=== PATIENT | male | born 1945 | race African-American/Black ===

== ENCOUNTER 2023-12-14 11:34 | Inpatient (IN) | payer MEDICARE ==
[~2023-12-14] VITALS: Ht 170.2 cm; Wt 58.1 kg
[2023-12-14 12:46] LABS: BASOPHILS % (AUTO) 0.5 % (0.0-2.0); EOSINOPHILS % (AUTO) 0.1 % (0.0-6.0); HEMATOCRIT 34 % (39-51); HEMOGLOBIN 11.7 g/dL (13.5-17.5); LYMPHOCYTES # (AUTO) 0.8 K/uL (0.8-4.8); LYMPHOCYTES % (AUTO) 8.5 % (20.0-44.0); MEAN CORPUSCULAR HEMOGLOBIN 31 PG (26.0-33.0); MEAN CORPUSCULAR HGB CONC 35 g/dl (31.0-36.0); MEAN CORPUSCULAR VOLUME 90 fL (80-96); MONOCYTES # (AUTO) 0.5 K/uL (0.1-1.30); MONOCYTES % (AUTO) 5.1 % (2.0-12.0); NEUTROPHILS # (AUTO) 8.4 K/uL (1.8-8.9); NEUTROPHILS % (AUTO) 85.8 % (43.0-81.0); PLATELET COUNT (AUTO) 245 K/uL (150-450); RED BLOOD CELL COUNT(AUTO) 3.72 MIL/uL (4.5-6.0); RED CELL DISTRIBUTION WIDTH 13.6 % (11.5-15.0); WHITE BLOOD COUNT (AUTO) 9.8 K/uL (4.3-11.0)
[2023-12-14 12:56] LABS: CALCIUM, SERUM 9.6 mg/dL (8.5-10.1); CARBON DIOXIDE 25 mmol/L (21-32); CHLORIDE 98 mmol/L (98-107); CREATININE 1.4 mg/dL (0.6-1.3); GLUCOSE 117 mg/dL (74-106); POTASSIUM 2.9 mmol/L (3.5-5.1); SODIUM SERUM 139 mmol/L (136-145); UREA NITROGEN, BLOOD 27 mg/dL (7-18)
[2023-12-14 13:08] LABS: NT-PRO BNP 670 pg/mL (0-125)
[2023-12-14] MEDS ORDERED: IOHEXOL-350 100 ML VIAL IV ONE (14:14)
[2023-12-14] MEDS ORDERED: ACETAMINOP PO (14:59)
[2023-12-14] MEDS ORDERED: ADVIL PO (14:59)
[2023-12-14] MEDS ORDERED: ENOXAPARIN SODIUM 60 MG/0.6 ML DISP.SYRIN SQ ONE (15:43)
[2023-12-14] MEDS: ENOXAPARIN SODIUM 60 MG/0.6 ML DISP.SYRIN SQ ONE (15:45)
[2023-12-14] MEDS ORDERED: MAGNESIUM HYDROXIDE 30 ML UDC PO PRN (16:30)
[2023-12-14] MEDS ORDERED: ACETAMINOPHEN 325 MG TABLET PO PRN (16:30)
[2023-12-14] MEDS ORDERED: ONDANSETRON HCL/PF 4 MG/2 ML VIAL IVP PRN (16:30)
[2023-12-14] MEDS ORDERED: Z GUARD REMEDY 4 OZ OINT TP PRN (16:30)
[2023-12-14 18:00] VITALS: BP 142/78; TEMP 98.8
[2023-12-14] MEDS: POTASSIUM CHLORIDE 10 MEQ TABLET.SA PO SCH (18:13)
[2023-12-14 20:00] VITALS: BP 123/71; TEMP 98; O2SAT 96
[2023-12-14] MEDS: IV 1/2NS 1000 ML 1,000 ML IV PRN (20:08)
[2023-12-14 22:13] VITALS: BP 123/71; TEMP 98; O2SAT 96
[2023-12-15] MEDS: ENOXAPARIN SODIUM 60 MG/0.6 ML DISP.SYRIN SQ SCH (04:53)
[2023-12-15 05:01] VITALS: BP 133/68; TEMP 97.8; O2SAT 97
[2023-12-15 06:00] VITALS: BP 133/68; TEMP 97.8; O2SAT 97
[2023-12-15 07:02] LABS: BASOPHILS % (AUTO) 0.4 % (0.0-2.0); EOSINOPHILS % (AUTO) 0.4 % (0.0-6.0); HEMATOCRIT 29 % (39-51); HEMOGLOBIN 10.2 g/dL (13.5-17.5); LYMPHOCYTES # (AUTO) 1.2 K/uL (0.8-4.8); LYMPHOCYTES % (AUTO) 14.2 % (20.0-44.0); MEAN CORPUSCULAR HEMOGLOBIN 32 PG (26.0-33.0); MEAN CORPUSCULAR HGB CONC 35 g/dl (31.0-36.0); MEAN CORPUSCULAR VOLUME 90 fL (80-96); MONOCYTES # (AUTO) 0.7 K/uL (0.1-1.30); MONOCYTES % (AUTO) 8.3 % (2.0-12.0); NEUTROPHILS # (AUTO) 6.4 K/uL (1.8-8.9); NEUTROPHILS % (AUTO) 76.7 % (43.0-81.0); PLATELET COUNT (AUTO) 193 K/uL (150-450); RED BLOOD CELL COUNT(AUTO) 3.22 MIL/uL (4.5-6.0); RED CELL DISTRIBUTION WIDTH 13.3 % (11.5-15.0); WHITE BLOOD COUNT (AUTO) 8.4 K/uL (4.3-11.0)
[2023-12-15 07:19] LABS: CALCIUM, SERUM 8.9 mg/dL (8.5-10.1); CARBON DIOXIDE 23 mmol/L (21-32); CHLORIDE 101 mmol/L (98-107); CREATININE 0.8 mg/dL (0.6-1.3); GLUCOSE 85 mg/dL (74-106); MAGNESIUM 1.3 mg/dL (1.8-2.4); PHOSPHORUS 3.2 mg/dL (2.5-4.9); SODIUM SERUM 137 mmol/L (136-145); UREA NITROGEN, BLOOD 23 mg/dL (7-18)
[2023-12-15 07:21] LABS: CHOLESTEROL 156 mg/dL (<200); FERRITIN 454 ng/mL (8-388); HDL CHOLESTEROL 54 mg/dL (40-60); LDL 87 mg/dL (0-99); THYROID STIMULATING HORMONE 1.783 uIU/mL (0.358-3.74); TRIGLYCERIDES 59 mg/dL (30-150)
[2023-12-15 07:38] LABS: IRON, SERUM 47 ug/dl (50-175); TOTAL IRON BINDING CAPACITY 193 ug/dl (250-450)
[2023-12-15 07:52] LABS: APPEARANCE,URINE SLIGHTLY CLOUDY (CLEAR); BILIRUBIN,URINE NEGATIVE (NEGATIVE); BLOOD, URINE 2+ Ery/uL (NEGATIVE); COLOR,URINE YELLOW (YELLOW); KETONES,URINE 1+ mg/dL (NEGATIVE); LEUKOCYTE ESTERASE ,URINE NEGATIVE (NEGATIVE); NITRITE, URINE NEGATIVE (NEGATIVE); PH,URINE 5.5 (5.0-8.0); PROTEIN,URINE NEGATIVE (NEGATIVE); UGLUCOSE NEGATIVE (NEGATIVE); UROBILINOGEN,URINE 0.2 EU/dL (0.2)
[2023-12-15 08:31] LABS: ADD URINE CULTURE NO; BACTERIA,URINE 1+ /HPF (None Seen); SQUAMOUS EPITHELIAL CELL,UR Rare /HPF (None Seen); URIC ACID CRYSTALS,URINE Moderate /HPF (None Seen)
[2023-12-15] MEDS: PANTOPRAZOLE 40 MG TABLET.DR PO SCH (08:33)
[2023-12-15] MEDS: Magnesium 1GM/D5W 100ML PREMIX 100 ML IV SCH (09:08)
[2023-12-15] MEDS: POTASSIUM CHLORIDE 20 MEQ TAB.PRT.SR PO SCH (09:08)
[2023-12-15 10:00] VITALS: BP 150/68; TEMP 98.9; O2SAT 91
[2023-12-15 10:06] LABS: PROSTATE SPECIFIC ANTIGEN SCR 8629.32 ng/mL (0.00-4.00)
[2023-12-15 10:50] LABS: FREE PSA 52.03 ng/mL (0.00-45)
[2023-12-15 14:00] VITALS: BP 155/68; TEMP 98.9; O2SAT 91
[2023-12-15 18:00] VITALS: BP 170/100; TEMP 98.4; O2SAT 95
[2023-12-15] MEDS: hydrALAZINE HCL IV 20 MG VIAL IV PRN (18:19)
[2023-12-15] MEDS: FERROUS SULFATE (325 MG) 325 MG/TAB TABLET PO SCH (18:19)
[2023-12-15 22:00] VITALS: BP 151/87; TEMP 98.4; O2SAT 96
[2023-12-16] VITALS (7 sets, daily range): BP systolic 128–164; BP diastolic 74–82; TEMP 98.1–98.8; O2SAT 97–100
[2023-12-16 07:13] LABS: BASOPHILS % (AUTO) 0.4 % (0.0-2.0); EOSINOPHILS # (AUTO) 0.1 K/uL (0.0-0.7); EOSINOPHILS % (AUTO) 1.4 % (0.0-6.0); HEMATOCRIT 29 % (39-51); HEMOGLOBIN 10.1 g/dL (13.5-17.5); LYMPHOCYTES # (AUTO) 1.1 K/uL (0.8-4.8); LYMPHOCYTES % (AUTO) 15.3 % (20.0-44.0); MEAN CORPUSCULAR HEMOGLOBIN 32 PG (26.0-33.0); MEAN CORPUSCULAR HGB CONC 35 g/dl (31.0-36.0); MEAN CORPUSCULAR VOLUME 91 fL (80-96); MONOCYTES # (AUTO) 0.6 K/uL (0.1-1.30); MONOCYTES % (AUTO) 8.2 % (2.0-12.0); NEUTROPHILS # (AUTO) 5.6 K/uL (1.8-8.9); NEUTROPHILS % (AUTO) 74.7 % (43.0-81.0); PLATELET COUNT (AUTO) 203 K/uL (150-450); RED BLOOD CELL COUNT(AUTO) 3.21 MIL/uL (4.5-6.0); RED CELL DISTRIBUTION WIDTH 13.3 % (11.5-15.0); WHITE BLOOD COUNT (AUTO) 7.4 K/uL (4.3-11.0)
[2023-12-16 08:02] LABS: ALANINE AMINOTRANSFERASE 7 U/L (12-78); ALBUMIN 2.8 g/dL (3.4-5.0); ALKALINE PHOSPHATASE 124 U/L (46-116); ASPARTATE AMINOTRANSFERASE 20 U/L (15-37); BILIRUBIN,TOTAL 1.5 mg/dL (0.2-1.0); CALCIUM, SERUM 8.6 mg/dL (8.5-10.1); CARBON DIOXIDE 24 mmol/L (21-32); CHLORIDE 102 mmol/L (98-107); CREATININE 0.8 mg/dL (0.6-1.3); GLUCOSE 88 mg/dL (74-106); MAGNESIUM 1.4 mg/dL (1.8-2.4); POTASSIUM 2.9 mmol/L (3.5-5.1); SODIUM SERUM 138 mmol/L (136-145); TOTAL PROTEIN, SERUM 6.4 g/dL (6.4-8.2); UREA NITROGEN, BLOOD 18 mg/dL (7-18)
[2023-12-16] MEDS ORDERED: MAGNESIUM OXIDE 400 MG TABLET PO SCH (08:30)
[2023-12-16] MEDS ORDERED: IV NS 0.9% 250 ML IV ONE (08:52)
[2023-12-16] MEDS ORDERED: IOHEXOL-300 100 ML VIAL IV ONE (08:52)
[2023-12-16] MEDS ORDERED: POTASSIUM CHLORIDE 20 MEQ TAB.PRT.SR PO ONE (09:00)
[2023-12-16] MEDS: POTASSIUM CHLORIDE 20 MEQ TAB.PRT.SR PO SCH (09:55)
[2023-12-16] MEDS: Magnesium 1GM/D5W 100ML PREMIX 100 ML IV SCH (09:57)
[2023-12-16 13:07] LABS: IMMUNOGLOBULIN A, SERUM 218 mg/dL (61-437); IMMUNOGLOBULIN G, SERUM 1396 mg/dL (603-1613); IMMUNOGLOBULIN M, SERUM 245 mg/dL (15-143)
[2023-12-17 03:08] LABS: FOLIC ACID 5.1 ng/mL (>3.0)
[2023-12-17 04:00] VITALS: BP 152/89; TEMP 98.8; O2SAT 97
[2023-12-17 06:07] LABS: *SPE A/G RATIO 1.1 (0.7-1.7); *SPE ALBUMIN 3.1 g/dL (2.9-4.4); *SPE ALPHA-1-GLOBULIN 0.2 g/dL (0.0-0.4); *SPE ALPHA-2-GLOBULIN 0.2 g/dL (0.4-1.0); *SPE BETA GLOBULIN 0.9 g/dL (0.7-1.3); *SPE GLOBULIN, TOTAL 2.8 g/dL (2.2-3.9); *SPE M-SPIKE Not Observed g/dL (Not Observed); *SPE PROTEIN TOTAL 5.9 g/dL (6.0-8.5); *SPEGAMMA GLOBULIN 1.4 g/dL (0.4-1.8)
[2023-12-17 07:10] LABS: BASOPHILS % (AUTO) 0.2 % (0.0-2.0); EOSINOPHILS # (AUTO) 0.1 K/uL (0.0-0.7); EOSINOPHILS % (AUTO) 1.4 % (0.0-6.0); HEMATOCRIT 30 % (39-51); HEMOGLOBIN 10.3 g/dL (13.5-17.5); LYMPHOCYTES # (AUTO) 1.1 K/uL (0.8-4.8); LYMPHOCYTES % (AUTO) 13.1 % (20.0-44.0); MEAN CORPUSCULAR HEMOGLOBIN 31 PG (26.0-33.0); MEAN CORPUSCULAR HGB CONC 34 g/dl (31.0-36.0); MEAN CORPUSCULAR VOLUME 91 fL (80-96); MONOCYTES # (AUTO) 0.7 K/uL (0.1-1.30); MONOCYTES % (AUTO) 8.1 % (2.0-12.0); NEUTROPHILS # (AUTO) 6.6 K/uL (1.8-8.9); NEUTROPHILS % (AUTO) 77.2 % (43.0-81.0); PLATELET COUNT (AUTO) 221 K/uL (150-450); RED BLOOD CELL COUNT(AUTO) 3.31 MIL/uL (4.5-6.0); RED CELL DISTRIBUTION WIDTH 13.5 % (11.5-15.0); WHITE BLOOD COUNT (AUTO) 8.6 K/uL (4.3-11.0)
[2023-12-17 07:28] LABS: ALANINE AMINOTRANSFERASE 7 U/L (12-78); ALBUMIN 2.9 g/dL (3.4-5.0); ALKALINE PHOSPHATASE 132 U/L (46-116); ASPARTATE AMINOTRANSFERASE 18 U/L (15-37); BILIRUBIN,TOTAL 1.2 mg/dL (0.2-1.0); CALCIUM, SERUM 8.9 mg/dL (8.5-10.1); CARBON DIOXIDE 27 mmol/L (21-32); CHLORIDE 104 mmol/L (98-107); CREATININE 0.8 mg/dL (0.6-1.3); GLUCOSE 83 mg/dL (74-106); MAGNESIUM 1.8 mg/dL (1.8-2.4); PHOSPHORUS 3.3 mg/dL (2.5-4.9); POTASSIUM 3.9 mmol/L (3.5-5.1); SODIUM SERUM 138 mmol/L (136-145); TOTAL PROTEIN, SERUM 6.6 g/dL (6.4-8.2); UREA NITROGEN, BLOOD 17 mg/dL (7-18)
[2023-12-17 12:00] VITALS: BP 159/86; TEMP 98.8; O2SAT 97
[2023-12-17 15:10] LABS: BETA-2 MICROGLOBULIN, SERUM 1.6 mg/L (0.6-2.4)
[2023-12-17] MEDS: ENOXAPARIN SODIUM 60 MG/0.6 ML DISP.SYRIN SQ SCH (17:38)
[2023-12-17 18:19] VITALS: BP 149/77; TEMP 98.8; O2SAT 97
[2023-12-17 20:00] VITALS: BP 132/82; TEMP 98; O2SAT 96
[2023-12-17] MEDS: TAMSULOSIN 0.4 MG CAP.SR.24H PO SCH (21:19)
[2023-12-18 04:00] VITALS: BP 121/76; TEMP 98.4; O2SAT 96
[2023-12-18 06:43] LABS: BASOPHILS % (AUTO) 0.4 % (0.0-2.0); EOSINOPHILS # (AUTO) 0.1 K/uL (0.0-0.7); EOSINOPHILS % (AUTO) 1.6 % (0.0-6.0); HEMATOCRIT 29 % (39-51); HEMOGLOBIN 10.1 g/dL (13.5-17.5); LYMPHOCYTES # (AUTO) 0.8 K/uL (0.8-4.8); LYMPHOCYTES % (AUTO) 11.4 % (20.0-44.0); MEAN CORPUSCULAR HEMOGLOBIN 32 PG (26.0-33.0); MEAN CORPUSCULAR HGB CONC 35 g/dl (31.0-36.0); MEAN CORPUSCULAR VOLUME 92 fL (80-96); MONOCYTES # (AUTO) 0.5 K/uL (0.1-1.30); MONOCYTES % (AUTO) 7.4 % (2.0-12.0); NEUTROPHILS # (AUTO) 5.5 K/uL (1.8-8.9); NEUTROPHILS % (AUTO) 79.2 % (43.0-81.0); PLATELET COUNT (AUTO) 216 K/uL (150-450); RED BLOOD CELL COUNT(AUTO) 3.18 MIL/uL (4.5-6.0); RED CELL DISTRIBUTION WIDTH 13.4 % (11.5-15.0)
[2023-12-18 06:53] LABS: INR 1.18 (0.91-1.10); PARTIAL THROMBOPLASTIN TIME 38.1 SEC (24.3-34.3); PROTHROMBIN TIME 12.4 SECS (9.2-11.1)
[2023-12-18 08:00] VITALS: BP 171/89; TEMP 98.2; O2SAT 97
[2023-12-18] MEDS ORDERED: GADOTERATE MEGLUMINE 10 MMOL/20 ML VIAL IV ONE (10:09)
[2023-12-18 12:00] VITALS: BP 154/72
[2023-12-18] MEDS: HYDROMORPHONE 1 MG/1 ML DISP.SYRIN IV ONE (12:08)
[2023-12-18] MEDS ORDERED: NALOXONE PREFILLED SYRINGE 2 MG/2 ML SYRINGE IV PRN (13:30)
[2023-12-18] MEDS ORDERED: FENTANYL PF 250MCG/5ML AMPUL IV PRN (13:30)
[2023-12-18] MEDS ORDERED: FLUMAZENIL 0.5 MG VIAL IV PRN (13:30)
[2023-12-18] MEDS ORDERED: MIDAZOLAM HCL 2 MG/2ML VIAL IV PRN (13:30)
[2023-12-18 16:00] VITALS: BP 150/81; TEMP 97.2; O2SAT 97
[2023-12-18 20:00] VITALS: BP 153/93; TEMP 97.8; O2SAT 100
[2023-12-18] MEDS: HYDROCODONE/APAP 5/325MG TABLET PO PRN (20:13)
[2023-12-19 04:00] VITALS: BP 141/88; TEMP 97.6; O2SAT 100
[2023-12-19 08:37] VITALS: BP 193/85
[2023-12-19] MEDS: ENSURE ENLIVE CHOC 237 ML CAN PO SCH (09:00)
[2023-12-19] MEDS ORDERED: Tamsulosin PO (09:57)
[2023-12-19] MEDS ORDERED: LACT-54 PO (09:57)
[2023-12-19] MEDS ORDERED: PANT40TA49 PO (09:57)
[2023-12-19] MEDS ORDERED: ACET325T53 PO (09:57)
[2023-12-19] MEDS ORDERED: FERR325T28 PO (09:57)
[2023-12-19] MEDS ORDERED: RIVA15TA PO (09:57)
[2023-12-19] MEDS ORDERED: RIVAROXABAN 15 MG TABLET PO SCH (17:00)
== END 2023-12-19 14:40 | DRG 722 ==
LOC: ER 12:07 → TELE1 15:33 → MEDSG1 12-16 11:39
PROVIDERS: ADMIT Nurse Practitioner Family; ATTEND Nurse Practitioner Acute Care
PROC: 0WBH3ZX Excision of Retroperitoneum, Percutaneous Approach, Diagnostic (ICD-10-PCS; principal; 2023-12-18)
DX: C61 Malignant neoplasm of prostate (principal); I26.94 Multiple subsegmental thrombotic pulmonary emboli without acute cor pulmonale; N17.9 Acute kidney failure, unspecified; D68.69 Other thrombophilia; C79.51 Secondary malignant neoplasm of bone; I12.9 Hypertensive chronic kidney disease with stage 1 through stage 4 chronic kidney disease, or unspecified chronic kidney disease; N18.9 Chronic kidney disease, unspecified; M89.9 Disorder of bone, unspecified; D64.9 Anemia, unspecified; E87.6 Hypokalemia; G89.29 Other chronic pain; J43.9 Emphysema, unspecified; N40.0 Benign prostatic hyperplasia without lower urinary tract symptoms; Z66 Do not resuscitate; Z20.822 Contact with and (suspected) exposure to COVID-19; D50.9 Iron deficiency anemia, unspecified; R63.4 Abnormal weight loss; Z68.20 Body mass index [BMI] 20.0-20.9, adult; R19.00 Intra-abdominal and pelvic swelling, mass and lump, unspecified site; R59.9 Enlarged lymph nodes, unspecified; K40.90 Unilateral inguinal hernia, without obstruction or gangrene, not specified as recurrent
CPT/HCPCS: 36415; 70553-TC; 71045-TC; 76770-TC; 77012-TC; 78306-TC; 80048-TC; 80053-TC; 80061-TC; 81001; 82232; 82378; 82607-TC; 82728-TC; 82784; 83540-TC; 83735-TC; 83880; 84100-TC; 84153-TC; 84154-TC; 84155; 84165; 84443-TC; 84484-TC; 85025-TC; 85378-TC; 85730-TC; 86334; 88305-TC; 88333-TC; 88334-TC; 88341; 88342; 88360; 93307-TC; 93970-TC; 97110-TC; 97116-TC; 97530-TC; A4223; A9503; A9575; G0378; J0360; J1170; J1650; J3010; J3475; J3490; J7050; Q9967